=== PATIENT | female | born 1960 | race African-American/Black ===

== ENCOUNTER 2020-03-03 15:08 | Emergency (ER) | payer OTHER ==
[2020-03-03 15:17] VITALS: BMI 43.9
[2020-03-03] MEDS ORDERED: METOCLOPRAMIDE HCL INJECTION 10 MG/2 ML VIAL IVPUSH ONE (16:31)
[2020-03-03 17:06] LABS: BASO % 0.5 % (0-2.0); EOS % 0.8 % (0-4.5); HEMATOCRIT 39.5 % (32.4-45.2); HEMOGLOBIN 13.1 GM/dL (10.7-15.3); LYMPH % 28.9 % (8-40); MCH 30.4 pg (25.7-33.7); MCHC 33.1 g/dl (32.0-36.0); MEAN CELL VOLUME 91.8 fl (80-96); MEAN PLT VOLUME 9.7 fl (7.5-11.1); MONO % 7.7 % (3.8-10.2); NEUT % 62.1 % (42.8-82.8); PLATELET COUNT 334 K/MM3 (134-434); RDW 14.6 % (11.6-15.6); WHITE BLOOD COUNT 6.6 K/mm3 (4.0-10.0)
[2020-03-03] MEDS ORDERED: ACETAMINOPHEN INJECTION 100 ML IVPB ONE (17:07)
[2020-03-03] MEDS ORDERED: METOCLOPRAMIDE HCL INJECTION 10 MG/2 ML VIAL ONE (17:07)
[2020-03-03] MEDS: ACETAMINOPHEN 1000 MG/100 ML VIAL (NON FORMULARY) IVPB ONE ×2 (17:14→18:41)
[2020-03-03 17:54] LABS: POTASSIUM 4.3 mmol/L (3.5-5.1)
[2020-03-03 17:56] LABS: ALBUMIN 3.9 g/dl (3.4-5.0); BLOOD UREA NITROGEN 11.4 mg/dL (7-18)
[2020-03-03 17:59] LABS: CREATININE 0.6 mg/dL (0.55-1.3)
[2020-03-03 18:01] LABS: BILIRUBIN,TOTAL 0.6 mg/dL (0.2-1); TOT PROT 7.3 g/dl (6.4-8.2)
[2020-03-03 18:04] LABS: N-TERMINAL BNP 234.8 pg/ml (5-125)
[2020-03-03] MEDS ORDERED: ACETAMINOPHEN 325 MG TABLET (FP) ONE (18:36)
[2020-03-03] MEDS ORDERED: ACETAMINOPHEN 325 MG TABLET (FP) PO ONE (18:42)
[2020-03-03 18:55] VITALS: TEMP 98
[2020-03-03 19:56] VITALS: BP 162/80; PULSE 78
== END 2020-03-03 19:57 | disposition home or self-care (01) ==
LOC: JER 15:08
PROC: 3E033NZ Introduction of Analgesics, Hypnotics, Sedatives into Peripheral Vein, Percutaneous Approach (ICD-10-PCS; principal; 2020-03-03)
PROC: 3E033GC Introduction of Other Therapeutic Substance into Peripheral Vein, Percutaneous Approach (ICD-10-PCS; 2020-03-03)
DX: I10 Essential (primary) hypertension (principal)
CPT/HCPCS: 36415; 70450-TC; 71045-TC-FY; 72125-TC; 80053; 82550; 82553; 83880; 84484; 85025; 93005; 93010; 99285-25; J0131

== ENCOUNTER 2020-04-07 06:23 | Day surgery (SDC) | payer OTHER ==
[2020-04-05 13:05] VITALS: BMI 43.9
[2020-04-07] MEDS ORDERED: PROPOFOL 20 ML ONE ×2 (11:24→12:15)
[2020-04-07] MEDS ORDERED: DEXAMETHASONE SOD PHOSPHATE 4 MG/1 ML VIAL ONE (11:24)
[2020-04-07] MEDS ORDERED: LIDOCAINE HCL/PF 2% SDV 5ML VIAL ONE (11:24)
[2020-04-07] MEDS ORDERED: MIDAZOLAM HCL 2 MG/2 ML SINGLE DOSE VIAL ONE (11:24)
[2020-04-07] MEDS ORDERED: CLINDAMYCIN PHOSPHATE 600 MG/4 ML VIAL ONE (11:58)
[2020-04-07] MEDS ORDERED: CLINDAMYCIN 900 MG PREMIX BAG IVPB ONE (12:00)
[2020-04-07] MEDS ORDERED: ACETAMINOPHEN 325 MG TABLET (FP) PO PRN (12:55)
[2020-04-07] MEDS ORDERED: oxyCODONE HCL 5 MG TABLET PO PRN (12:59)
[2020-04-07] MEDS ORDERED: ONDANSETRON 4 MG/2 ML VIAL IVPUSH PRN (12:59)
[2020-04-07] MEDS ORDERED: ACETAMINOPHEN 1000 MG/100 ML VIAL (NON FORMULARY) IVPB ONE (13:00)
[2020-04-07] MEDS ORDERED: KETOROLAC TROMETHAMINE 30 MG/1 ML VIAL IVPUSH ONE (13:00)
[2020-04-07] MEDS ORDERED: LACTATED RINGERS SOLUTION 1,000 ML IV SCH (13:00)
[2020-04-07] MEDS ORDERED: ACETAMINOPHEN INJECTION 100 ML IVPB ONE (13:11)
[2020-04-07] MEDS ORDERED: ALBUTEROL SO4 0.083% IH SOL 2.5 MG/3 ML VIAL.NEB. NEB ONE (15:19)
[2020-04-07 17:04] VITALS: BP 137/67; PULSE 57; TEMP 97.2
== END 2020-04-07 17:50 | disposition home or self-care (01) ==
LOC: JASU-SURG 06:23
PROVIDERS: ATTEND Obstetrics & Gynecology
PROC: 0UDB8ZX Extraction of Endometrium, Via Natural or Artificial Opening Endoscopic, Diagnostic (ICD-10-PCS; principal; 2020-04-07 11:30)
DX: N95.0 Postmenopausal bleeding (principal)
CPT/HCPCS: 88305-TC; 94760; J0131

== ENCOUNTER → 2020-06-14 | Day surgery (SDC) | payer OTHER | END | disposition home or self-care (01) | LOC: FMAMMOTONE 10:44 | PROVIDERS: ATTEND Surgery | PROC: 0H9T3ZX Drainage of Right Breast, Percutaneous Approach, Diagnostic (ICD-10-PCS; principal; 2020-06-14) | DX: D24.1 Benign neoplasm of right breast (principal) | CPT/HCPCS: 19081; A4648 ==

== ENCOUNTER 2020-08-01 04:53 | Day surgery (SDC) | payer OTHER ==
[2020-07-28 11:34] VITALS: BMI 43.9
[2020-08-01] MEDS ORDERED: LIDOCAINE HCL 1%, 10 MG/ML (20ML VIAL) ONE (14:15)
[2020-08-01] MEDS ORDERED: MIDAZOLAM HCL 2 MG/2 ML SINGLE DOSE VIAL ONE (14:44)
[2020-08-01] MEDS ORDERED: PROPOFOL 20 ML ONE ×2 (14:45)
[2020-08-01] MEDS ORDERED: LIDOCAINE HCL/PF 2% SDV 5ML VIAL ONE (14:50)
[2020-08-01] MEDS ORDERED: LIDOCAINE HCL 2% JELLY (5 ML/TUBE) ONE (15:18)
[2020-08-01] MEDS ORDERED: ceFAZolin SODIUM 1 GM VIAL IVPB ONE (15:32)
[2020-08-01] MEDS ORDERED: CLINDAMYCIN 900 MG PREMIX BAG IVPB ONE (15:32)
[2020-08-01] MEDS ORDERED: ceFAZolin SODIUM 1 GM VIAL ONE (15:35)
[2020-08-01] MEDS ORDERED: LIDOCAINE HCL 2% (50ML VIAL) INF ONE (15:35)
[2020-08-01] MEDS ORDERED: CLINDAMYCIN PHOSPHATE 600 MG/4 ML VIAL ONE (15:41)
[2020-08-01] MEDS ORDERED: oxyCODONE HCL 5 MG TABLET PO PRN (16:27)
[2020-08-01] MEDS ORDERED: ONDANSETRON 4 MG/2 ML VIAL IVPUSH PRN (16:27)
[2020-08-01] MEDS ORDERED: LACTATED RINGERS SOLUTION 1,000 ML IV SCH (16:30)
[2020-08-01] MEDS ORDERED: ONDANSETRON 4 MG/2 ML VIAL ONE (17:25)
[2020-08-01] MEDS ORDERED: oxyCODONE HCL 5 MG TABLET ONE (18:50)
[2020-08-01 20:27] VITALS: BP 152/75; PULSE 75; TEMP 97.8
== END 2020-08-01 20:25 | disposition home or self-care (01) ==
LOC: JASU-SURG 04:53
PROVIDERS: ATTEND Surgery
PROC: 0HBT0ZZ Excision of Right Breast, Open Approach (ICD-10-PCS; principal; 2020-08-01 15:36)
DX: D24.1 Benign neoplasm of right breast (principal)
CPT/HCPCS: 19281; 76098-TC-FY; 88307-TC; 94760

== ENCOUNTER 2020-11-01 14:22 | Emergency (ER) | payer OTHER ==
[2020-11-01 14:33] VITALS: BP 152/91; PULSE 52; TEMP 98.1; BMI 44.2
[2020-11-01 16:20] LABS: HEMATOCRIT 38.4 % (32.4-45.2)
[2020-11-01 16:25] LABS: HEMOGLOBIN 12.4 GM/dl (10.7-15.3); MCH 29.6 pg (25.7-33.7); MCHC 32.3 g/dl (32.0-36.0); MEAN CELL VOLUME 91.6 fl (80-96); MEAN PLT VOLUME 9.9 fl (7.5-11.1); PLATELET COUNT 260 10^3/uL (134-434); RBC 4.19 M/mm3 (3.60-5.2); RDW 13.6 % (11.6-15.6); WHITE BLOOD COUNT 11.3 K/mm3 (4.0-10.8)
[2020-11-01 16:27] LABS: ALBUMIN 3.6 g/dl (3.4-5.0); ALK PHOS 112 U/L (45-117); ANION GAP 14 MMOL/L (8-16); BILIRUBIN,TOTAL 0.8 mg/dl (0.2-1); CALCIUM 8.4 mg/dl (8.5-10); CHLORIDE 103 mmol/L (98-107); CO2 22 mmol/L (21-32); CREATININE 0.6 mg/dl (0.55-1.3); GLUCOSE,RANDOM 76 mg/dl (74-106); SGOT/AST 23 U/L (15-37); SGPT/ALT 18 U/L (13-61); SODIUM 139 mmol/L (136-145); TOT PROT 6.3 g/dl (6.4-8.2)
[2020-11-01 17:24] LABS: PLATELET ESTIMATE ADEQUATE
[2020-11-01 17:47] LABS: N-TERMINAL BNP 143.78 pg/ml (5-125)
== END 2020-11-01 18:45 | disposition home or self-care (01) ==
LOC: FER 14:22
DX: R22.42 Localized swelling, mass and lump, left lower limb (principal); R07.9 Chest pain, unspecified
CPT/HCPCS: 36415; 71046-TC-FY; 80053; 82550; 83735; 83880; 84439; 84443; 84484; 85025; 93005; 93970-TC; 99285-25

== ENCOUNTER → 2021-06-04 | Day surgery (SDC) | payer OTHER ==
[2021-06-01 18:08] VITALS: BMI 42.0
[~2021-06-04] MED LIST: BUPIVACAINE HCL/PF 0.25% (2.5MG/ML) 10 ML VIAL ONE; DEXAMETHASONE SOD PHOSPHATE 10 MG/1 ML VIAL ONE
== END | disposition home or self-care (01) ==
LOC: JASU-SURG 05:26
PROVIDERS: ATTEND Physical Medicine & Rehabilitation
DX: Z53.8 Procedure and treatment not carried out for other reasons (principal)
CPT/HCPCS: J1100

== ENCOUNTER 2022-01-05 04:28 | Inpatient (IN) | payer BC, OTHER ==
[2022-01-05] MEDS ORDERED: CLOPIDOGREL BISULFATE 300 MG TABLET PO ONE (04:40)
[2022-01-05 04:42] VITALS: BMI 43.9
[2022-01-05] MEDS ORDERED: CLOPIDOGREL BISULFATE 300 MG TABLET ONE (04:53)
[2022-01-05] MEDS ORDERED: NITROGLYCERIN SUBLINGUAL 1/150 0.4 MG TAB SL ONE (05:00)
[2022-01-05] MEDS ORDERED: ACETAMINOPHEN 1000 MG/100 ML BAG IVPB ONE (05:00)
[2022-01-05] MEDS ORDERED: ACETAMINOPHEN INJECTION 100 ML IVPB ONE (05:07)
[2022-01-05 05:21] LABS: BASO % 0.3 % (0-2.0); EOS % 1.3 % (0-4.5); HEMOGLOBIN 12.7 GM/dL (10.7-15.3); LYMPH % 36.2 % (8-40); MCH 29.6 pg (25.7-33.7); MCHC 32.5 g/dl (32.0-36.0); MEAN CELL VOLUME 91.1 fl (80-96); MEAN PLT VOLUME 9.7 fl (7.5-11.1); MONO % 11.1 % (3.8-10.2); NEUT % 51.1 % (42.8-82.8); PLATELET COUNT 357 10^3/uL (134-434); RBC 4.28 M/mm3 (3.60-5.2); RDW 14.1 % (11.6-15.6); WHITE BLOOD COUNT 8.4 K/mm3 (4.0-10.0)
[2022-01-05 05:28] LABS: INR 0.98 (0.83-1.09); PROTHROMBIN TIME (PATIENT) 11.3 SEC (9.7-13.0)
[2022-01-05 05:30] LABS: ACTIVATED PTT 33.4 SECONDS (25.2-36.5)
[2022-01-05 05:41] LABS: CALCIUM 9.3 mg/dL (8.5-10.1)
[2022-01-05 05:42] LABS: ALBUMIN 3.8 g/dl (3.4-5.0)
[2022-01-05 05:45] LABS: CREATININE 0.7 mg/dL (0.55-1.3)
[2022-01-05 05:47] LABS: BILIRUBIN,TOTAL 0.4 mg/dL (0.2-1); TOT PROT 7.1 g/dl (6.4-8.2)
[2022-01-05 05:50] LABS: N-TERMINAL BNP 233.6 pg/ml (5-125)
[2022-01-05] MEDS ORDERED: LIDOCAINE 5% TOPICAL PATCH TP ONE (06:06)
[2022-01-05] MEDS ORDERED: FAMOTIDINE 20 MG/50 ML IVPB 20 MG/50 ML MG IVPB ONE (06:06)
[2022-01-05] MEDS ORDERED: LIDOCAINE 5% TOPICAL PATCH ONE (06:08)
[2022-01-05] MEDS ORDERED: morphine CARPU-JECT 2 MG/1 ML DISP.SYRIN IVPUSH ONE ×2 (06:58→10:32)
[2022-01-05] MEDS ORDERED: METOPROLOL TARTRATE 50 MG TABLET (FP) PO ONE (06:59)
[2022-01-05] MEDS ORDERED: DEXAMETHASONE SOD PHOSPHATE 10 MG/1 ML VIAL IVPUSH ONE (08:02)
[2022-01-05] MEDS ORDERED: DEXAMETHASONE SOD PHOSPHATE 10 MG/1 ML VIAL ONE (08:02)
[2022-01-05] MEDS ORDERED: EPINEPHrine 1:1,000 0.3 MG/0.3 ML SYR IM ONE (08:04)
[2022-01-05] MEDS ORDERED: EPINEPHrine/PF 1 MG/1 ML (1:1,000) AMPULE ONE (08:04)
[2022-01-05] MEDS ORDERED: ALBUTEROL SO4 2.5/IPRATROPIUM 0.5 INH SOL 3 ML VIAL.NEB. NEB ONE (09:08)
[2022-01-05] MEDS ORDERED: ALBUTEROL SO4 0.083% IH SOL 2.5 MG/3 ML VIAL.NEB. NEB ONE ×2 (09:09)
[2022-01-05] MEDS ORDERED: morphine CARPU-JECT 2 MG/1 ML DISP.SYRIN IVPUSH PRN (11:16)
[2022-01-05] MEDS ORDERED: amLODIPine BESYLATE 10 MG TABLET (FP) PO ONE (11:21)
[2022-01-05] MEDS ORDERED: ACETAMINOPHEN 1000 MG/100 ML BAG IVPB PRN (11:29)
[2022-01-05] MEDS: ALBUTEROL SO4 2.5/IPRATROPIUM 0.5 INH SOL 3 ML VIAL.NEB. NEB PRN ×3 (11:42→20:26)
[2022-01-05] MEDS: methylPREDNISolone NA SUCC 40 MG/1 ML VIAL IVPUSH SCH ×2 (11:59→17:51)
[2022-01-05] MEDS: PANTOPRAZOLE SODIUM 40 MG VIAL IVPUSH SCH (11:59)
[2022-01-05] MEDS ORDERED: hydrALAZINE HCL 25 MG TABLET (FP) PO PRN (12:12)
[2022-01-05] MEDS: VALSARTAN 160 MG TABLET PO SCH ×2 (13:41→21:11)
[2022-01-05] MEDS: TORSEMIDE 20 MG TABLET (FP) PO SCH (13:41)
[2022-01-05] MEDS: NEBIVOLOL 10 MG TABLET (FP) PO SCH (15:31)
[2022-01-05] MEDS ORDERED: guaiFENesin/CODEINE 5 ML UNIT-DOSE CUPS PO PRN (18:27)
[2022-01-05] MEDS ORDERED: guaiFENesin 200 MG/10 ML 10 ML UNIT-DOSE CUPS PO PRN (18:30)
[2022-01-05] MEDS: LIDOCAINE PATCH REMOVAL MC SCH (21:49)
[2022-01-05] MEDS ORDERED: METOPROLOL TARTRATE 50 MG TABLET (FP) PO SCH (22:00)
[2022-01-06] MEDS: methylPREDNISolone NA SUCC 40 MG/1 ML VIAL IVPUSH SCH ×3 (02:29→17:05)
[2022-01-06] MEDS: TORSEMIDE 20 MG TABLET (FP) PO SCH (05:33)
[2022-01-06 09:14] LABS: CREATININE 0.9 mg/dL (0.55-1.3)
[2022-01-06] MEDS: NEBIVOLOL 10 MG TABLET (FP) PO SCH (09:19)
[2022-01-06] MEDS: ALBUTEROL SO4 2.5/IPRATROPIUM 0.5 INH SOL 3 ML VIAL.NEB. NEB PRN ×2 (09:19→15:26)
[2022-01-06] MEDS: ENOXAPARIN NA (PORCINE) 40 MG/0.4 ML DISP.SYRIN SQ SCH (09:20)
[2022-01-06] MEDS: VALSARTAN 160 MG TABLET PO SCH ×2 (09:20→21:27)
[2022-01-06] MEDS: PANTOPRAZOLE SODIUM 40 MG VIAL IVPUSH SCH (09:20)
[2022-01-06] MEDS ORDERED: POTASSIUM CHLORIDE ORAL LIQUID 20 MEQ/15 ML PO ONE (09:39)
[2022-01-06] MEDS ORDERED: FLUTICASONE/UMECLIDIN/VILANTER(100-62.5-25 TRELEGY ELLIPTA) INAHLER IH SCH (10:00)
[2022-01-06] MEDS ORDERED: NAPROXEN 375 MG TABLET PO SCH (10:00)
[2022-01-06] MEDS ORDERED: amLODIPine BESYLATE 5 MG TABLET (FP) PO SCH ×2 (10:00)
[2022-01-06 10:15] LABS: MAGNESIUM 1.9 mg/dL (1.8-2.4)
[2022-01-06] MEDS: LIDOCAINE 5% TOPICAL PATCH TP SCH (15:23)
[2022-01-06] MEDS: guaiFENesin/CODEINE 10 ML UNIT-DOSE CUPS PO PRN ×2 (15:24→21:26)
[2022-01-06] MEDS: MAGNESIUM OXIDE 400 MG TABLET (FP) PO SCH (21:27)
[2022-01-06] MEDS: LIDOCAINE PATCH REMOVAL MC SCH ×2 (21:27→21:28)
[2022-01-07] MEDS: methylPREDNISolone NA SUCC 40 MG/1 ML VIAL IVPUSH SCH ×3 (02:05→17:05)
[2022-01-07] MEDS: ALBUTEROL SO4 2.5/IPRATROPIUM 0.5 INH SOL 3 ML VIAL.NEB. NEB PRN ×3 (04:47→16:21)
[2022-01-07] MEDS: MAGNESIUM OXIDE 400 MG TABLET (FP) PO SCH ×2 (09:46→21:52)
[2022-01-07] MEDS: NEBIVOLOL 10 MG TABLET (FP) PO SCH ×3 (09:46→11:04)
[2022-01-07] MEDS: VALSARTAN 160 MG TABLET PO SCH ×2 (09:46→21:52)
[2022-01-07] MEDS: PANTOPRAZOLE SODIUM 40 MG VIAL IVPUSH SCH (09:46)
[2022-01-07] MEDS: ENOXAPARIN NA (PORCINE) 40 MG/0.4 ML DISP.SYRIN SQ SCH (09:47)
[2022-01-07] MEDS: LIDOCAINE 5% TOPICAL PATCH TP SCH (11:16)
[2022-01-07] MEDS: FLUTICASONE/UMECLIDIN/VILANTER(200-62.5-25 TRELEGY ELLIPTA) INAHLER IH SCH (12:20)
[2022-01-07] MEDS: LIDOCAINE PATCH REMOVAL MC SCH ×2 (21:53)
[2022-01-08] MEDS: methylPREDNISolone NA SUCC 40 MG/1 ML VIAL IVPUSH SCH ×3 (02:50→17:49)
[2022-01-08] MEDS: ALBUTEROL SO4 2.5/IPRATROPIUM 0.5 INH SOL 3 ML VIAL.NEB. NEB PRN ×3 (08:15→19:50)
[2022-01-08] MEDS: NEBIVOLOL 10 MG TABLET (FP) PO SCH (10:03)
[2022-01-08] MEDS: LIDOCAINE 5% TOPICAL PATCH TP SCH (10:04)
[2022-01-08] MEDS: VALSARTAN 160 MG TABLET PO SCH ×2 (10:04→21:51)
[2022-01-08] MEDS: ENOXAPARIN NA (PORCINE) 40 MG/0.4 ML DISP.SYRIN SQ SCH (10:04)
[2022-01-08] MEDS: PANTOPRAZOLE SODIUM 40 MG VIAL IVPUSH SCH (10:04)
[2022-01-08] MEDS: FLUTICASONE/UMECLIDIN/VILANTER(200-62.5-25 TRELEGY ELLIPTA) INAHLER IH SCH (10:30)
[2022-01-08] MEDS: guaiFENesin/CODEINE 10 ML UNIT-DOSE CUPS PO PRN ×2 (11:17→23:52)
[2022-01-08] MEDS: ACETAMINOPHEN 500 MG TABLET (FP) PO PRN (17:28)
[2022-01-08] MEDS ORDERED: morphine CARPU-JECT 2 MG/1 ML DISP.SYRIN IM PRN (20:25)
[2022-01-08] MEDS: LIDOCAINE PATCH REMOVAL MC SCH ×2 (21:51→21:52)
[2022-01-09] MEDS: methylPREDNISolone NA SUCC 40 MG/1 ML VIAL IVPUSH SCH ×3 (01:56→17:35)
[2022-01-09] MEDS: guaiFENesin/CODEINE 10 ML UNIT-DOSE CUPS PO PRN ×3 (06:03→20:20)
[2022-01-09] MEDS: ALBUTEROL SO4 2.5/IPRATROPIUM 0.5 INH SOL 3 ML VIAL.NEB. NEB PRN ×2 (06:06→20:05)
[2022-01-09] MEDS: LIDOCAINE 5% TOPICAL PATCH TP SCH (09:44)
[2022-01-09] MEDS: NEBIVOLOL 10 MG TABLET (FP) PO SCH (09:44)
[2022-01-09] MEDS: VALSARTAN 160 MG TABLET PO SCH ×2 (09:44→21:47)
[2022-01-09] MEDS: PANTOPRAZOLE SODIUM 40 MG VIAL IVPUSH SCH (09:44)
[2022-01-09] MEDS: FLUTICASONE/UMECLIDIN/VILANTER(200-62.5-25 TRELEGY ELLIPTA) INAHLER IH SCH (09:45)
[2022-01-09] MEDS: ENOXAPARIN NA (PORCINE) 40 MG/0.4 ML DISP.SYRIN SQ SCH (09:45)
[2022-01-09] MEDS: LIDOCAINE PATCH REMOVAL MC SCH ×2 (21:49→21:50)
[2022-01-10] MEDS: methylPREDNISolone NA SUCC 40 MG/1 ML VIAL IVPUSH SCH ×3 (02:12→17:02)
[2022-01-10] MEDS: guaiFENesin/CODEINE 10 ML UNIT-DOSE CUPS PO PRN ×3 (06:13→22:42)
[2022-01-10] MEDS: VALSARTAN 160 MG TABLET PO SCH ×2 (09:42→22:41)
[2022-01-10] MEDS: LIDOCAINE 5% TOPICAL PATCH TP SCH (09:43)
[2022-01-10] MEDS: NEBIVOLOL 10 MG TABLET (FP) PO SCH (09:43)
[2022-01-10] MEDS: PANTOPRAZOLE SODIUM 40 MG VIAL IVPUSH SCH (09:43)
[2022-01-10] MEDS: ENOXAPARIN NA (PORCINE) 40 MG/0.4 ML DISP.SYRIN SQ SCH (09:44)
[2022-01-10] MEDS: FLUTICASONE/UMECLIDIN/VILANTER(200-62.5-25 TRELEGY ELLIPTA) INAHLER IH SCH (09:44)
[2022-01-10 10:19] LABS: BASO % 0.1 % (0-2.0); HEMATOCRIT 42.8 % (32.4-45.2); HEMOGLOBIN 14.3 GM/dL (10.7-15.3); LYMPH % 7.5 % (8-40); MCH 30.5 pg (25.7-33.7); MCHC 33.3 g/dl (32.0-36.0); MEAN CELL VOLUME 91.5 fl (80-96); MEAN PLT VOLUME 9.8 fl (7.5-11.1); MONO % 2.2 % (3.8-10.2); NEUT % 90.2 % (42.8-82.8); PLATELET COUNT 451 10^3/uL (134-434); RBC 4.68 M/mm3 (3.60-5.2); RDW 14.6 % (11.6-15.6); WHITE BLOOD COUNT 14.7 K/mm3 (4.0-10.0)
[2022-01-10 10:41] LABS: CALCIUM 8.9 mg/dL (8.5-10.1)
[2022-01-10 10:42] LABS: BLOOD UREA NITROGEN 28.9 mg/dL (7-18)
[2022-01-10 10:45] LABS: CREATININE 1.1 mg/dL (0.55-1.3)
[2022-01-10] MEDS: ACETAMINOPHEN 500 MG TABLET (FP) PO PRN ×2 (15:06→22:41)
[2022-01-10] MEDS: LIDOCAINE PATCH REMOVAL MC SCH (22:48)
[2022-01-11] MEDS: methylPREDNISolone NA SUCC 40 MG/1 ML VIAL IVPUSH SCH ×4 (03:30→18:33)
[2022-01-11] MEDS: guaiFENesin/CODEINE 10 ML UNIT-DOSE CUPS PO PRN ×2 (06:00→21:29)
[2022-01-11 07:18] LABS: HEMATOCRIT 42.9 % (32.4-45.2); HEMOGLOBIN 13.9 GM/dL (10.7-15.3); MCH 29.8 pg (25.7-33.7); MCHC 32.5 g/dl (32.0-36.0); MEAN CELL VOLUME 91.8 fl (80-96); MEAN PLT VOLUME 10.1 fl (7.5-11.1); PLATELET COUNT 442 10^3/uL (134-434); RBC 4.67 M/mm3 (3.60-5.2); RDW 14.4 % (11.6-15.6); WHITE BLOOD COUNT 15.3 K/mm3 (4.0-10.0)
[2022-01-11 07:40] LABS: CALCIUM 8.4 mg/dL (8.5-10.1)
[2022-01-11 07:41] LABS: ALBUMIN 3.1 g/dl (3.4-5.0); BLOOD UREA NITROGEN 27.1 mg/dL (7-18); MAGNESIUM 2.7 mg/dL (1.8-2.4)
[2022-01-11 07:44] LABS: CREATININE 0.9 mg/dL (0.55-1.3)
[2022-01-11 07:46] LABS: BILIRUBIN,TOTAL 0.8 mg/dL (0.2-1); TOT PROT 6.1 g/dl (6.4-8.2)
[2022-01-11 09:00] LABS: ANISOCYTOSIS 0; MACROCYTOSIS 0
[2022-01-11] MEDS: PANTOPRAZOLE SODIUM 40 MG VIAL IVPUSH SCH (09:39)
[2022-01-11] MEDS: VALSARTAN 160 MG TABLET PO SCH ×2 (09:39→21:29)
[2022-01-11] MEDS: NEBIVOLOL 10 MG TABLET (FP) PO SCH (09:39)
[2022-01-11] MEDS: LIDOCAINE 5% TOPICAL PATCH TP SCH (09:40)
[2022-01-11] MEDS: FLUTICASONE/UMECLIDIN/VILANTER(200-62.5-25 TRELEGY ELLIPTA) INAHLER IH SCH (09:40)
[2022-01-11] MEDS: APIXABAN 5 MG TABLET PO SCH ×2 (10:00→21:29)
[2022-01-11] MEDS: ACETAMINOPHEN 500 MG TABLET (FP) PO PRN (18:33)
[2022-01-11] MEDS: LIDOCAINE PATCH REMOVAL MC SCH (21:32)
[2022-01-12] MEDS: methylPREDNISolone NA SUCC 40 MG/1 ML VIAL IVPUSH SCH ×3 (03:00→17:12)
[2022-01-12 08:38] LABS: HEMATOCRIT 43.1 % (32.4-45.2); HEMOGLOBIN 13.7 GM/dL (10.7-15.3); MCH 29.2 pg (25.7-33.7); MCHC 31.7 g/dl (32.0-36.0); MEAN CELL VOLUME 92.1 fl (80-96); PLATELET COUNT 414 10^3/uL (134-434); RBC 4.68 M/mm3 (3.60-5.2); RDW 14.2 % (11.6-15.6)
[2022-01-12 09:02] LABS: CALCIUM 8.3 mg/dL (8.5-10.1)
[2022-01-12 09:03] LABS: ALBUMIN 2.9 g/dl (3.4-5.0); BLOOD UREA NITROGEN 26.3 mg/dL (7-18); MAGNESIUM 2.7 mg/dL (1.8-2.4)
[2022-01-12 09:06] LABS: CREATININE 0.8 mg/dL (0.55-1.3)
[2022-01-12] MEDS ORDERED: ALBUTEROL SO4 2.5/IPRATROPIUM 0.5 INH SOL 3 ML VIAL.NEB. NEB PRN (09:06)
[2022-01-12 09:08] LABS: BILIRUBIN,TOTAL 0.7 mg/dL (0.2-1); TOT PROT 5.6 g/dl (6.4-8.2)
[2022-01-12 09:10] LABS: ANISOCYTOSIS 1+; MACROCYTOSIS 1+; PLATELET ESTIMATE INCREASED
[2022-01-12] MEDS ORDERED: ALBUTEROL SO4 2.5/IPRATROPIUM 0.5 INH SOL 3 ML VIAL.NEB. NEB SCH ×2 (09:15→09:29)
[2022-01-12] MEDS: APIXABAN 5 MG TABLET PO SCH ×2 (10:37→21:32)
[2022-01-12] MEDS: VALSARTAN 160 MG TABLET PO SCH ×2 (10:37→21:32)
[2022-01-12] MEDS: PANTOPRAZOLE SODIUM 40 MG VIAL IVPUSH SCH (10:37)
[2022-01-12] MEDS: NEBIVOLOL 10 MG TABLET (FP) PO SCH (10:37)
[2022-01-12] MEDS: LIDOCAINE 5% TOPICAL PATCH TP SCH (10:37)
[2022-01-12] MEDS: FLUTICASONE/UMECLIDIN/VILANTER(200-62.5-25 TRELEGY ELLIPTA) INAHLER IH SCH (10:38)
[2022-01-12] MEDS ORDERED: ALBUTEROL SO4 0.083% IH SOL 2.5 MG/3 ML VIAL.NEB. NEB PRN (14:34)
[2022-01-12] MEDS: ACETAMINOPHEN 500 MG TABLET (FP) PO PRN (20:33)
[2022-01-12] MEDS: guaiFENesin/CODEINE 10 ML UNIT-DOSE CUPS PO PRN (20:33)
[2022-01-12] MEDS: ALBUTEROL SO4 0.083% IH SOL 2.5 MG/3 ML VIAL.NEB. NEB SCH (20:56)
[2022-01-12] MEDS: ACETYLCYSTEINE 20% 200MG/ML 30 ML VIAL *FOR ORAL / INH USE ONLY NEB SCH (20:56)
[2022-01-12] MEDS: LIDOCAINE PATCH REMOVAL MC SCH (21:32)
[2022-01-13] MEDS: methylPREDNISolone NA SUCC 40 MG/1 ML VIAL IVPUSH SCH ×3 (01:08→17:25)
[2022-01-13] MEDS: ACETYLCYSTEINE 20% 200MG/ML 30 ML VIAL *FOR ORAL / INH USE ONLY NEB SCH ×3 (07:40→20:27)
[2022-01-13] MEDS: ALBUTEROL SO4 0.083% IH SOL 2.5 MG/3 ML VIAL.NEB. NEB SCH ×3 (07:40→20:27)
[2022-01-13] MEDS: LIDOCAINE 5% TOPICAL PATCH TP SCH (10:31)
[2022-01-13] MEDS: PANTOPRAZOLE SODIUM 40 MG VIAL IVPUSH SCH (10:32)
[2022-01-13] MEDS: NEBIVOLOL 10 MG TABLET (FP) PO SCH (10:34)
[2022-01-13] MEDS: APIXABAN 5 MG TABLET PO SCH ×2 (10:34→21:36)
[2022-01-13] MEDS: FLUTICASONE/UMECLIDIN/VILANTER(200-62.5-25 TRELEGY ELLIPTA) INAHLER IH SCH (10:34)
[2022-01-13] MEDS: VALSARTAN 160 MG TABLET PO SCH ×2 (10:34→21:36)
[2022-01-13 13:32] LABS: HEMATOCRIT 43.7 % (32.4-45.2); HEMOGLOBIN 13.8 GM/dL (10.7-15.3); MCH 29.2 pg (25.7-33.7); MCHC 31.5 g/dl (32.0-36.0); MEAN CELL VOLUME 92.6 fl (80-96); MEAN PLT VOLUME 9.9 fl (7.5-11.1); PLATELET COUNT 463 10^3/uL (134-434); RBC 4.72 M/mm3 (3.60-5.2); RDW 14.3 % (11.6-15.6); WHITE BLOOD COUNT 21.6 K/mm3 (4.0-10.0)
[2022-01-13 13:59] LABS: CALCIUM 8.5 mg/dL (8.5-10.1)
[2022-01-13 14:00] LABS: ALBUMIN 3.1 g/dl (3.4-5.0); ANISOCYTOSIS 1+; BLOOD UREA NITROGEN 27.2 mg/dL (7-18); MACROCYTOSIS 0; MAGNESIUM 2.6 mg/dL (1.8-2.4)
[2022-01-13 14:03] LABS: CREATININE 0.9 mg/dL (0.55-1.3)
[2022-01-13 14:05] LABS: BILIRUBIN,TOTAL 0.9 mg/dL (0.2-1)
[2022-01-13] MEDS: guaiFENesin/CODEINE 10 ML UNIT-DOSE CUPS PO PRN (14:25)
[2022-01-13] MEDS: CARVEDILOL 12.5 MG TABLET (FP) PO SCH (21:36)
[2022-01-13] MEDS: LIDOCAINE PATCH REMOVAL MC SCH (21:37)
[2022-01-14] MEDS: methylPREDNISolone NA SUCC 40 MG/1 ML VIAL IVPUSH SCH ×3 (03:29→18:37)
[2022-01-14] MEDS: ACETAMINOPHEN 500 MG TABLET (FP) PO PRN ×2 (03:29→21:14)
[2022-01-14] MEDS: ALBUTEROL SO4 0.083% IH SOL 2.5 MG/3 ML VIAL.NEB. NEB SCH ×3 (07:15→20:51)
[2022-01-14] MEDS: ACETYLCYSTEINE 20% 200MG/ML 30 ML VIAL *FOR ORAL / INH USE ONLY NEB SCH ×2 (07:15→14:33)
[2022-01-14 08:35] LABS: CALCIUM 8.2 mg/dL (8.5-10.1)
[2022-01-14 08:36] LABS: ALBUMIN 3.1 g/dl (3.4-5.0); BLOOD UREA NITROGEN 24.6 mg/dL (7-18); MAGNESIUM 2.6 mg/dL (1.8-2.4)
[2022-01-14 08:39] LABS: CREATININE 0.8 mg/dL (0.55-1.3)
[2022-01-14 08:40] LABS: BILIRUBIN,TOTAL 0.8 mg/dL (0.2-1)
[2022-01-14] MEDS: APIXABAN 5 MG TABLET PO SCH ×2 (09:43→21:16)
[2022-01-14] MEDS: PANTOPRAZOLE SODIUM 40 MG VIAL IVPUSH SCH (09:43)
[2022-01-14] MEDS: LIDOCAINE 5% TOPICAL PATCH TP SCH (09:43)
[2022-01-14] MEDS: VALSARTAN 160 MG TABLET PO SCH ×2 (09:43→21:15)
[2022-01-14] MEDS: CARVEDILOL 12.5 MG TABLET (FP) PO SCH ×2 (09:43→21:15)
[2022-01-14] MEDS: FLUTICASONE/UMECLIDIN/VILANTER(200-62.5-25 TRELEGY ELLIPTA) INAHLER IH SCH (09:54)
[2022-01-14] MEDS: ACETYLCYSTEINE 20% 200MG/ML 4 ML VIAL *FOR ORAL / INH USE ONLY NEB SCH (20:50)
[2022-01-14] MEDS: LIDOCAINE PATCH REMOVAL MC SCH ×2 (21:15→22:04)
[2022-01-14] MEDS: MONTELUKAST NA 10 MG TABLET PO SCH (21:15)
[2022-01-14] MEDS ORDERED: traMADol HCL 50 MG TABLET PO ONE (21:19)
[2022-01-15] MEDS ORDERED: traMADol HCL 50 MG TABLET PO ONE (00:03)
[2022-01-15] MEDS: methylPREDNISolone NA SUCC 40 MG/1 ML VIAL IVPUSH SCH ×3 (01:20→18:51)
[2022-01-15] MEDS: ALBUTEROL SO4 0.083% IH SOL 2.5 MG/3 ML VIAL.NEB. NEB SCH ×3 (07:50→20:09)
[2022-01-15] MEDS: ACETYLCYSTEINE 20% 200MG/ML 4 ML VIAL *FOR ORAL / INH USE ONLY NEB SCH ×3 (07:50→20:10)
[2022-01-15] MEDS: APIXABAN 5 MG TABLET PO SCH ×2 (09:15→21:18)
[2022-01-15] MEDS: CARVEDILOL 12.5 MG TABLET (FP) PO SCH ×2 (09:15→21:18)
[2022-01-15] MEDS: PANTOPRAZOLE SODIUM 40 MG VIAL IVPUSH SCH (09:15)
[2022-01-15] MEDS: FLUTICASONE/UMECLIDIN/VILANTER(200-62.5-25 TRELEGY ELLIPTA) INAHLER IH SCH (09:15)
[2022-01-15] MEDS: VALSARTAN 160 MG TABLET PO SCH ×2 (09:15→21:18)
[2022-01-15] MEDS: LIDOCAINE 5% TOPICAL PATCH TP SCH (09:15)
[2022-01-15] MEDS: oxyCODONE HCL 5 MG TABLET PO PRN ×2 (12:02→21:18)
[2022-01-15] MEDS: ACETAMINOPHEN 325 MG TABLET (FP) PO PRN (12:02)
[2022-01-15] MEDS: MONTELUKAST NA 10 MG TABLET PO SCH (21:18)
[2022-01-15] MEDS: ACETAMINOPHEN 500 MG TABLET (FP) PO PRN (21:19)
[2022-01-15] MEDS: LIDOCAINE PATCH REMOVAL MC SCH ×2 (21:55→22:25)
[2022-01-16] MEDS: guaiFENesin 200 MG/10 ML 10 ML UNIT-DOSE CUPS PO PRN (05:00)
[2022-01-16] MEDS: methylPREDNISolone NA SUCC 40 MG/1 ML VIAL IVPUSH SCH ×3 (05:30→21:22)
[2022-01-16] MEDS: ACETYLCYSTEINE 20% 200MG/ML 4 ML VIAL *FOR ORAL / INH USE ONLY NEB SCH ×3 (07:27→20:15)
[2022-01-16] MEDS: ALBUTEROL SO4 0.083% IH SOL 2.5 MG/3 ML VIAL.NEB. NEB SCH ×3 (07:27→20:15)
[2022-01-16 07:56] LABS: HEMATOCRIT 38.7 % (32.4-45.2); HEMOGLOBIN 12.5 GM/dL (10.7-15.3); MCH 29.8 pg (25.7-33.7); MCHC 32.3 g/dl (32.0-36.0); MEAN PLT VOLUME 9.6 fl (7.5-11.1); PLATELET COUNT 420 10^3/uL (134-434); RDW 14.4 % (11.6-15.6); WHITE BLOOD COUNT 23.5 K/mm3 (4.0-10.0)
[2022-01-16 08:31] LABS: BLOOD UREA NITROGEN 25.8 mg/dL (7-18)
[2022-01-16 08:34] LABS: CREATININE 0.8 mg/dL (0.55-1.3)
[2022-01-16] MEDS: PANTOPRAZOLE SODIUM 40 MG VIAL IVPUSH SCH (10:04)
[2022-01-16] MEDS: FLUTICASONE/UMECLIDIN/VILANTER(200-62.5-25 TRELEGY ELLIPTA) INAHLER IH SCH (10:05)
[2022-01-16] MEDS: APIXABAN 5 MG TABLET PO SCH ×2 (10:05→21:22)
[2022-01-16] MEDS: VALSARTAN 160 MG TABLET PO SCH ×2 (10:05→21:22)
[2022-01-16] MEDS: CARVEDILOL 12.5 MG TABLET (FP) PO SCH (10:05)
[2022-01-16] MEDS: LIDOCAINE 5% TOPICAL PATCH TP SCH (10:10)
[2022-01-16 10:17] LABS: ANISOCYTOSIS 0; HELMET CELLS 0; HOWELL-JOLLY BODIES 0; MACROCYTOSIS 0; OVALOCYTE 0; ROULEAU 0; SICKELED CELLS 0; TARGET CELLS 0; TEAR DROP CELLS 0; TOXIC GRANULATION 0
[2022-01-16] MEDS: ONDANSETRON 4 MG/2 ML VIAL IVPUSH PRN (15:30)
[2022-01-16] MEDS: CARVEDILOL 25 MG TABLET (FP) PO SCH ×2 (19:36→21:30)
[2022-01-16] MEDS ORDERED: ONDANSETRON 4 MG/2 ML VIAL IVPUSH ONE (21:07)
[2022-01-16] MEDS: LIDOCAINE PATCH REMOVAL MC SCH (21:22)
[2022-01-16] MEDS: MONTELUKAST NA 10 MG TABLET PO SCH (21:22)
[2022-01-17] MEDS: ACETAMINOPHEN 325 MG TABLET (FP) PO PRN ×2 (02:56→21:52)
[2022-01-17] MEDS: oxyCODONE HCL 5 MG TABLET PO PRN ×3 (02:57→21:51)
[2022-01-17] MEDS: ACETYLCYSTEINE 20% 200MG/ML 4 ML VIAL *FOR ORAL / INH USE ONLY NEB SCH ×3 (07:45→20:45)
[2022-01-17] MEDS: ALBUTEROL SO4 0.083% IH SOL 2.5 MG/3 ML VIAL.NEB. NEB SCH ×2 (07:45→14:50)
[2022-01-17 07:50] LABS: HEMATOCRIT 37.7 % (32.4-45.2); HEMOGLOBIN 12.3 GM/dL (10.7-15.3); MCHC 32.7 g/dl (32.0-36.0); MEAN CELL VOLUME 91.7 fl (80-96); MEAN PLT VOLUME 9.4 fl (7.5-11.1); PLATELET COUNT 393 10^3/uL (134-434); RBC 4.11 M/mm3 (3.60-5.2); RDW 14.2 % (11.6-15.6); WHITE BLOOD COUNT 22.3 K/mm3 (4.0-10.0)
[2022-01-17 08:04] LABS: CALCIUM 7.8 mg/dL (8.5-10.1)
[2022-01-17 08:05] LABS: ALBUMIN 2.7 g/dl (3.4-5.0); BLOOD UREA NITROGEN 23.2 mg/dL (7-18); MAGNESIUM 2.4 mg/dL (1.8-2.4)
[2022-01-17 08:08] LABS: CREATININE 0.8 mg/dL (0.55-1.3); PHOSPHOROUS 3.8 mg/dL (2.5-4.9)
[2022-01-17 08:09] LABS: TOT PROT 5.2 g/dl (6.4-8.2)
[2022-01-17 08:56] LABS: ANISOCYTOSIS 0; HELMET CELLS 0; HOWELL-JOLLY BODIES 0; MACROCYTOSIS 0; OVALOCYTE 0; ROULEAU 0; SICKELED CELLS 0; TARGET CELLS 0; TEAR DROP CELLS 0; TOXIC GRANULATION 0
[2022-01-17] MEDS: CARVEDILOL 25 MG TABLET (FP) PO SCH ×2 (09:18→21:51)
[2022-01-17] MEDS: methylPREDNISolone NA SUCC 40 MG/1 ML VIAL IVPUSH SCH (09:18)
[2022-01-17] MEDS: VALSARTAN 160 MG TABLET PO SCH ×2 (09:18→21:50)
[2022-01-17] MEDS: PANTOPRAZOLE SODIUM 40 MG VIAL IVPUSH SCH (09:18)
[2022-01-17] MEDS: APIXABAN 5 MG TABLET PO SCH ×2 (09:18→21:51)
[2022-01-17] MEDS: FLUTICASONE/UMECLIDIN/VILANTER(200-62.5-25 TRELEGY ELLIPTA) INAHLER IH SCH (09:19)
[2022-01-17] MEDS: LIDOCAINE 5% TOPICAL PATCH TP SCH (09:19)
[2022-01-17] MEDS: ACETAMINOPHEN 500 MG TABLET (FP) PO PRN (15:19)
[2022-01-17] MEDS ORDERED: FUROSEMIDE 40 MG/4 ML INJECTABLE VIAL IVPUSH ONE (15:58)
[2022-01-17] MEDS ORDERED: LEVALBUTEROL HCL 0.31 MG/3 ML VIAL.NEB IH PRN (16:19)
[2022-01-17] MEDS: LEVALBUTEROL HCL 0.31 MG/3 ML VIAL.NEB IH SCH (20:49)
[2022-01-17] MEDS: MONTELUKAST NA 10 MG TABLET PO SCH (21:50)
[2022-01-17] MEDS: LIDOCAINE PATCH REMOVAL MC SCH (22:40)
[2022-01-17] MEDS: guaiFENesin 200 MG/10 ML 10 ML UNIT-DOSE CUPS PO PRN (23:33)
[2022-01-18] MEDS: ACETYLCYSTEINE 20% 200MG/ML 4 ML VIAL *FOR ORAL / INH USE ONLY NEB SCH ×3 (07:45→20:09)
[2022-01-18] MEDS: LEVALBUTEROL HCL 0.31 MG/3 ML VIAL.NEB IH SCH ×3 (07:45→20:10)
[2022-01-18 09:44] LABS: HEMOGLOBIN 12.5 GM/dL (10.7-15.3); MCH 29.3 pg (25.7-33.7); MCHC 31.9 g/dl (32.0-36.0); MEAN CELL VOLUME 91.6 fl (80-96); MEAN PLT VOLUME 8.9 fl (7.5-11.1); PLATELET COUNT 372 10^3/uL (134-434); RBC 4.26 M/mm3 (3.60-5.2); RDW 14.2 % (11.6-15.6); WHITE BLOOD COUNT 24.8 K/mm3 (4.0-10.0)
[2022-01-18] MEDS: APIXABAN 5 MG TABLET PO SCH ×2 (09:53→21:31)
[2022-01-18] MEDS: VALSARTAN 160 MG TABLET PO SCH ×2 (09:53→21:31)
[2022-01-18] MEDS: LIDOCAINE 5% TOPICAL PATCH TP SCH (09:55)
[2022-01-18] MEDS: CARVEDILOL 25 MG TABLET (FP) PO SCH ×2 (09:55→21:31)
[2022-01-18] MEDS: PANTOPRAZOLE SODIUM 40 MG VIAL IVPUSH SCH (09:56)
[2022-01-18] MEDS ORDERED: predniSONE 20 MG TABLET (UD) PO SCH (10:00)
[2022-01-18] MEDS: FLUTICASONE/UMECLIDIN/VILANTER(200-62.5-25 TRELEGY ELLIPTA) INAHLER IH SCH (10:01)
[2022-01-18 10:11] LABS: ALBUMIN 2.7 g/dl (3.4-5.0); BLOOD UREA NITROGEN 20.4 mg/dL (7-18); MAGNESIUM 2.3 mg/dL (1.8-2.4)
[2022-01-18 10:14] LABS: PHOSPHOROUS 3.1 mg/dL (2.5-4.9)
[2022-01-18 10:16] LABS: BILIRUBIN,TOTAL 0.9 mg/dL (0.2-1); TOT PROT 5.2 g/dl (6.4-8.2)
[2022-01-18 10:18] LABS: ANISOCYTOSIS 0; HELMET CELLS 0; HOWELL-JOLLY BODIES 0; MACROCYTOSIS 0; OVALOCYTE 0; ROULEAU 0; SICKELED CELLS 0; TARGET CELLS 0; TEAR DROP CELLS 0; TOXIC GRANULATION 0
[2022-01-18] MEDS: FUROSEMIDE 40 MG/4 ML INJECTABLE VIAL IVPUSH SCH (17:06)
[2022-01-18] MEDS ORDERED: dilTIAZem HCL 25 MG/5 ML - 5 ML VIAL IVPUSH ONE (19:18)
[2022-01-18] MEDS: MONTELUKAST NA 10 MG TABLET PO SCH (21:31)
[2022-01-18] MEDS: guaiFENesin 200 MG/10 ML 10 ML UNIT-DOSE CUPS PO PRN (21:32)
[2022-01-18] MEDS: ACETAMINOPHEN 500 MG TABLET (FP) PO PRN (21:32)
[2022-01-18] MEDS: LIDOCAINE PATCH REMOVAL MC SCH (21:32)
[2022-01-19] MEDS: LEVALBUTEROL HCL 0.31 MG/3 ML VIAL.NEB IH SCH ×3 (07:30→19:59)
[2022-01-19] MEDS: ACETYLCYSTEINE 20% 200MG/ML 4 ML VIAL *FOR ORAL / INH USE ONLY NEB SCH ×3 (07:30→19:59)
[2022-01-19 07:41] LABS: HEMATOCRIT 41.7 % (32.4-45.2); HEMOGLOBIN 13.4 GM/dL (10.7-15.3); MCH 29.4 pg (25.7-33.7); MCHC 32.1 g/dl (32.0-36.0); MEAN CELL VOLUME 91.6 fl (80-96); MEAN PLT VOLUME 9.7 fl (7.5-11.1); PLATELET COUNT 344 10^3/uL (134-434); RBC 4.55 M/mm3 (3.60-5.2); RDW 14.2 % (11.6-15.6); WHITE BLOOD COUNT 18.9 K/mm3 (4.0-10.0)
[2022-01-19 08:07] LABS: ALBUMIN 2.9 g/dl (3.4-5.0); BLOOD UREA NITROGEN 17.8 mg/dL (7-18); CALCIUM 8.3 mg/dL (8.5-10.1); MAGNESIUM 2.4 mg/dL (1.8-2.4)
[2022-01-19 08:08] LABS: CREATININE 0.7 mg/dL (0.55-1.3); PHOSPHOROUS 3.4 mg/dL (2.5-4.9)
[2022-01-19 08:11] LABS: BILIRUBIN,TOTAL 1.1 mg/dL (0.2-1); TOT PROT 5.4 g/dl (6.4-8.2)
[2022-01-19] MEDS: FUROSEMIDE 40 MG/4 ML INJECTABLE VIAL IVPUSH SCH (09:13)
[2022-01-19] MEDS: VALSARTAN 160 MG TABLET PO SCH ×2 (09:13→22:27)
[2022-01-19] MEDS: PANTOPRAZOLE SODIUM 40 MG VIAL IVPUSH SCH (09:13)
[2022-01-19] MEDS: APIXABAN 5 MG TABLET PO SCH ×2 (09:13→22:27)
[2022-01-19] MEDS: CARVEDILOL 25 MG TABLET (FP) PO SCH (09:13)
[2022-01-19] MEDS: LIDOCAINE 5% TOPICAL PATCH TP SCH (09:15)
[2022-01-19 09:59] LABS: ANISOCYTOSIS 0; HELMET CELLS 0; HOWELL-JOLLY BODIES 0; MACROCYTOSIS 0; OVALOCYTE 0; ROULEAU 0; SICKELED CELLS 0; TARGET CELLS 0; TEAR DROP CELLS 0; TOXIC GRANULATION 0
[2022-01-19] MEDS: MONTELUKAST NA 10 MG TABLET PO SCH (22:27)
[2022-01-19] MEDS: LIDOCAINE PATCH REMOVAL MC SCH (22:31)
[2022-01-19] MEDS: FLUTICASONE/UMECLIDIN/VILANTER(200-62.5-25 TRELEGY ELLIPTA) INAHLER IH SCH (22:31)
[2022-01-19] MEDS: ACETAMINOPHEN 500 MG TABLET (FP) PO PRN (22:57)
[2022-01-20 07:46] LABS: HEMATOCRIT 38.7 % (32.4-45.2); HEMOGLOBIN 12.6 GM/dL (10.7-15.3); MCH 29.8 pg (25.7-33.7); MCHC 32.5 g/dl (32.0-36.0); MEAN CELL VOLUME 91.7 fl (80-96); MEAN PLT VOLUME 9.1 fl (7.5-11.1); PLATELET COUNT 283 10^3/uL (134-434); RBC 4.22 M/mm3 (3.60-5.2); RDW 14.2 % (11.6-15.6)
[2022-01-20] MEDS: LEVALBUTEROL HCL 0.31 MG/3 ML VIAL.NEB IH SCH ×3 (07:51→20:45)
[2022-01-20] MEDS: ACETYLCYSTEINE 20% 200MG/ML 4 ML VIAL *FOR ORAL / INH USE ONLY NEB SCH (07:51)
[2022-01-20 08:10] LABS: CALCIUM 8.1 mg/dL (8.5-10.1)
[2022-01-20 08:11] LABS: ALBUMIN 2.7 g/dl (3.4-5.0); MAGNESIUM 2.3 mg/dL (1.8-2.4)
[2022-01-20 08:15] LABS: TOT PROT 4.9 g/dl (6.4-8.2)
[2022-01-20 08:16] LABS: BILIRUBIN,TOTAL 0.8 mg/dL (0.2-1)
[2022-01-20 08:18] LABS: CREATININE 0.7 mg/dL (0.55-1.3)
[2022-01-20] MEDS: ACETAMINOPHEN 500 MG TABLET (FP) PO PRN (08:43)
[2022-01-20 10:14] LABS: ANISOCYTOSIS 0; HELMET CELLS 0; HOWELL-JOLLY BODIES 0; MACROCYTOSIS 0; OVALOCYTE 0; ROULEAU 0; SICKELED CELLS 0; TARGET CELLS 0; TEAR DROP CELLS 0; TOXIC GRANULATION 0
[2022-01-20] MEDS: LIDOCAINE 5% TOPICAL PATCH TP SCH ×2 (10:34→11:59)
[2022-01-20] MEDS: VALSARTAN 160 MG TABLET PO SCH ×2 (10:34→21:15)
[2022-01-20] MEDS: PANTOPRAZOLE SODIUM 40 MG VIAL IVPUSH SCH (10:34)
[2022-01-20] MEDS: APIXABAN 5 MG TABLET PO SCH ×2 (10:35→21:15)
[2022-01-20] MEDS: FLUTICASONE/UMECLIDIN/VILANTER(200-62.5-25 TRELEGY ELLIPTA) INAHLER IH SCH (10:44)
[2022-01-20] MEDS ORDERED: LIDOCAINE 5% TOPICAL PATCH TP ONE (19:55)
[2022-01-20] MEDS: MONTELUKAST NA 10 MG TABLET PO SCH (21:15)
[2022-01-20] MEDS: LIDOCAINE PATCH REMOVAL MC SCH ×2 (21:19→21:20)
[2022-01-21] MEDS: ACETAMINOPHEN 500 MG TABLET (FP) PO PRN ×2 (02:19→21:52)
[2022-01-21 08:11] LABS: BASO % 0.4 % (0-2.0); EOS % 0.5 % (0-4.5); HEMATOCRIT 38.6 % (32.4-45.2); HEMOGLOBIN 12.4 GM/dL (10.7-15.3); LYMPH % 19.4 % (8-40); MCH 29.6 pg (25.7-33.7); MCHC 32.2 g/dl (32.0-36.0); MEAN CELL VOLUME 91.8 fl (80-96); MONO % 6.2 % (3.8-10.2); NEUT % 73.5 % (42.8-82.8); PLATELET COUNT 223 10^3/uL (134-434); RBC 4.21 M/mm3 (3.60-5.2); RDW 14.4 % (11.6-15.6)
[2022-01-21 08:40] LABS: ALBUMIN 2.6 g/dl (3.4-5.0)
[2022-01-21 08:41] LABS: BLOOD UREA NITROGEN 14.1 mg/dL (7-18); MAGNESIUM 2.4 mg/dL (1.8-2.4)
[2022-01-21 08:43] LABS: CREATININE 0.7 mg/dL (0.55-1.3); PHOSPHOROUS 3.8 mg/dL (2.5-4.9)
[2022-01-21 08:45] LABS: TOT PROT 5.2 g/dl (6.4-8.2)
[2022-01-21] MEDS: LEVALBUTEROL HCL 0.31 MG/3 ML VIAL.NEB IH SCH ×3 (08:50→20:49)
[2022-01-21] MEDS: PANTOPRAZOLE SODIUM 40 MG VIAL IVPUSH SCH (09:44)
[2022-01-21] MEDS: VALSARTAN 160 MG TABLET PO SCH (09:44)
[2022-01-21] MEDS: APIXABAN 5 MG TABLET PO SCH ×2 (09:44→21:52)
[2022-01-21] MEDS: FLUTICASONE/UMECLIDIN/VILANTER(200-62.5-25 TRELEGY ELLIPTA) INAHLER IH SCH (09:45)
[2022-01-21] MEDS: LIDOCAINE 5% TOPICAL PATCH TP SCH (09:45)
[2022-01-21] MEDS ORDERED: REGADENOSON 0.4 MG/5 ML PRE-FILLED SYRINGE IVPUSH ONE ×2 (10:03→10:30)
[2022-01-21] MEDS: VALSARTAN 80 MG TABLET PO SCH (21:52)
[2022-01-21] MEDS: MONTELUKAST NA 10 MG TABLET PO SCH (21:52)
[2022-01-21] MEDS: LIDOCAINE PATCH REMOVAL MC SCH ×2 (21:53→21:54)
[2022-01-22] MEDS: LEVALBUTEROL HCL 0.31 MG/3 ML VIAL.NEB IH SCH ×2 (08:30→13:26)
[2022-01-22] MEDS: LIDOCAINE 5% TOPICAL PATCH TP SCH (10:16)
[2022-01-22] MEDS: VALSARTAN 80 MG TABLET PO SCH ×2 (10:16→21:25)
[2022-01-22] MEDS: APIXABAN 5 MG TABLET PO SCH ×2 (10:16→21:25)
[2022-01-22] MEDS: PANTOPRAZOLE SODIUM 40 MG VIAL IVPUSH SCH (10:16)
[2022-01-22] MEDS: FLUTICASONE/UMECLIDIN/VILANTER(200-62.5-25 TRELEGY ELLIPTA) INAHLER IH SCH (10:19)
[2022-01-22] MEDS ORDERED: PANTOPRAZOLE 40 MG TABLET PO ONE (10:27)
[2022-01-22 11:20] LABS: HEMOGLOBIN 12.3 GM/dL (10.7-15.3); MCH 30.2 pg (25.7-33.7); MCHC 33.1 g/dl (32.0-36.0); MEAN CELL VOLUME 91.2 fl (80-96); MEAN PLT VOLUME 9.2 fl (7.5-11.1); PLATELET COUNT 197 10^3/uL (134-434); RBC 4.06 M/mm3 (3.60-5.2); RDW 14.5 % (11.6-15.6); WHITE BLOOD COUNT 9.6 K/mm3 (4.0-10.0)
[2022-01-22 12:04] LABS: ALBUMIN 2.5 g/dl (3.4-5.0); BLOOD UREA NITROGEN 11.8 mg/dL (7-18)
[2022-01-22 12:07] LABS: CREATININE 0.8 mg/dL (0.55-1.3)
[2022-01-22 12:08] LABS: BILIRUBIN,TOTAL 0.7 mg/dL (0.2-1); TOT PROT 5.2 g/dl (6.4-8.2)
[2022-01-22] MEDS: MONTELUKAST NA 10 MG TABLET PO SCH (21:25)
[2022-01-22] MEDS: LIDOCAINE PATCH REMOVAL MC SCH ×2 (21:26)
[2022-01-23 08:35] LABS: HEMATOCRIT 35.7 % (32.4-45.2); HEMOGLOBIN 11.9 GM/dL (10.7-15.3); MCH 30.3 pg (25.7-33.7); MCHC 33.3 g/dl (32.0-36.0); MEAN CELL VOLUME 90.9 fl (80-96); PLATELET COUNT 194 10^3/uL (134-434); RBC 3.93 M/mm3 (3.60-5.2); RDW 14.3 % (11.6-15.6); WHITE BLOOD COUNT 7.9 K/mm3 (4.0-10.0)
[2022-01-23 08:58] LABS: ALBUMIN 2.5 g/dl (3.4-5.0); BLOOD UREA NITROGEN 10.7 mg/dL (7-18); CALCIUM 7.8 mg/dL (8.5-10.1)
[2022-01-23 09:01] LABS: CREATININE 0.7 mg/dL (0.55-1.3)
[2022-01-23 09:02] LABS: TOT PROT 5.3 g/dl (6.4-8.2)
[2022-01-23] MEDS: VALSARTAN 80 MG TABLET PO SCH ×2 (09:21→21:36)
[2022-01-23] MEDS: PANTOPRAZOLE 40 MG TABLET PO SCH (09:22)
[2022-01-23] MEDS: APIXABAN 5 MG TABLET PO SCH ×2 (09:22→21:36)
[2022-01-23] MEDS: LIDOCAINE 5% TOPICAL PATCH TP SCH (09:23)
[2022-01-23] MEDS: FLUTICASONE/UMECLIDIN/VILANTER(200-62.5-25 TRELEGY ELLIPTA) INAHLER IH SCH (09:24)
[2022-01-23] MEDS: ONDANSETRON 4 MG/2 ML VIAL IVPUSH PRN ×2 (11:33→21:38)
[2022-01-23] MEDS: MONTELUKAST NA 10 MG TABLET PO SCH (21:36)
[2022-01-23] MEDS: LIDOCAINE PATCH REMOVAL MC SCH ×2 (21:36→21:49)
[2022-01-24 03:49] VITALS: RESP 18
[2022-01-24 06:34] VITALS: PULSE 89
[2022-01-24 08:54] VITALS: BP 132/75; TEMP 98.5
[2022-01-24] MEDS: VALSARTAN 80 MG TABLET PO SCH (09:17)
[2022-01-24] MEDS: APIXABAN 5 MG TABLET PO SCH (09:17)
[2022-01-24] MEDS: PANTOPRAZOLE 40 MG TABLET PO SCH (09:17)
[2022-01-24] MEDS: LIDOCAINE 5% TOPICAL PATCH TP SCH (09:19)
[2022-01-24] MEDS: FLUTICASONE/UMECLIDIN/VILANTER(200-62.5-25 TRELEGY ELLIPTA) INAHLER IH SCH (10:40)
== END 2022-01-24 10:33 | disposition home or self-care (01) | DRG 202 ==
LOC: JER 04:28 → JERBED 06:08 → J4W 10:54 → OBSVTOIN 01-08 09:38
PROVIDERS: ADMIT Internal Medicine; ATTEND Internal Medicine
DX: J45.901 Unspecified asthma with (acute) exacerbation (principal); I47.29 Other ventricular tachycardia; Z68.42 Body mass index [BMI] 45.0-49.9, adult; I48.0 Paroxysmal atrial fibrillation; I10 Essential (primary) hypertension; R09.02 Hypoxemia; E66.01 Morbid (severe) obesity due to excess calories
CPT/HCPCS: 0241U-QW; 36415; 71045-TC-FY; 71046-TC-FY; 71275-TC; 74174-TC; 78452-TC; 80048; 80053; 80061; 83735; 83880; 84100; 84443; 84484; 85025; 85027; 85379; 85610; 85651; 85730; 86140; 93005; 93010; 93017; 93306-TC; 94010; 94640; 94761; 97116-GP; 97161-GP; 99285-25; A9502; G0378; J1100; J2785; Q9967